=== PATIENT | male | born 1985 | race African-American/Black ===

== ENCOUNTER 2020-10-26 13:24 | Emergency (ER) | payer MEDICAID ==
[~2020-10-26] VITALS: Ht 172.7 cm; Wt 96.0 kg
[2020-10-26 15:20] LABS: BASOPHILS % 0.6 % (0.0-2.0); EOSINOPHILS % 0.2 % (0.0-5.0); HEMATOCRIT. 45.9 % (42.0-52.0); HEMOGLOBIN. 15.9 g/dL (14.0-18.0); LYMPHOCYTES % 21.5 % (20.0-50.0); MEAN CORPUSCULAR HEMOGLOBIN 30.9 pg (28.0-32.0); MEAN CORPUSCULAR VOLUME 89.2 fL (80.0-94.0); MEAN PLATELET VOLUME 8.3 fl (7.4-10.4); NEUTROPHILS % 67.7 % (40.0-76.0); PLATELET 241 x1000/uL (130-400); RED BLOOD CELL COUNT 5.14 mill/uL (4.7-6.1); RED CELL DISTRIBUTION WIDTH 13.2 % (11.6-14.6)
[2020-10-26 15:27] LABS: CHLORIDE 89 mEq/L (98-107)
[2020-10-26 15:36] LABS: BETA HYDROXYBUTYRATE 2.8 mMol/L (0.0-0.3)
[2020-10-26 15:39] LABS: HCG SCREEN NEGATIVE
[2020-10-26] MEDS ORDERED: INSULIN REGULAR (HUMULIN R) 300UNITS/3ML VIAL IV ONE (15:45)
[2020-10-26] MEDS ORDERED: SODIUM CHLORIDE 0.9% 1,000 ML IV ONE (15:45)
[2020-10-26 15:59] LABS: CLARITY URINE CLEAR (CLEAR); COLOR URINE YELLOW (YELLOW); KETONES URINE 1+ (NEGATIVE); LEUKOCYTE ESTERASE URINE NEGATIVE (NEGATIVE); NITRITE URINE NEGATIVE (NEGATIVE); OCCULT BLOOD URINE NEGATIVE (NEGATIVE); PROTEIN URINE NEGATIVE (NEGATIVE); SPECIFIC GRAVITY URINE 1.032 (1.005-1.030); UROBILINOGEN URINE 0.2 E.U./dL (0.2-1.0)
[2020-10-26 17:41] VITALS: BP 135/89
== END 2020-10-26 18:12 | disposition home or self-care (01) ==
LOC: ER 13:38
DX: E11.65 Type 2 diabetes mellitus with hyperglycemia (principal); E86.0 Dehydration
CPT/HCPCS: 36415; 80053; 81003; 82010; 82962; 84703; 85025; 93005; 96361; 96374; 99284; J1815; J7030